=== PATIENT | female | born 1995 | race Caucasian/White ===

== ENCOUNTER → 2021-12-08 13:40 | Outpatient (BNVA) | payer MEDICAID, SELFPAY | PROVIDERS: Visit Provider Obstetrics & Gynecology | DX: Z01.419 Encounter for gynecological examination (general) (routine) without abnormal findings (principal) | CPT/HCPCS: 88175 ==

== ENCOUNTER 2022-08-27 10:39 | Outpatient (CLI) | payer MEDICAID, SELFPAY ==
--- NOTE | 2022-08-27 10:46 | XR_ITS ---
WS: [id number] EXAMINATION: XR thoracic spine 3V* [id number] REASON FOR EXAM: R07.81 - Pleurodynia COMPARISON: None available. ORDER DATE: 08/27/2022 11:11 AM FINDINGS: There is normal thoracic vertebral alignment is no evidence of compression deformities or disc change s. XR/XR thoracic spine 3V* [id number] IMPRESSION: Normal thoracic spine.
--- NOTE | 2022-08-27 10:46 | XR_ITS ---
WS: [id number] EXAMINATION: XR ribs LT 2V* [id number] REASON FOR EXAM: R07.81 - Pleurodynia COMPARISON: None available. ORDER DATE: 08/27/2022 11:11 AM FINDINGS: Rib outlines appear intact throughout the left ribs. No underlying pulmonary change XR/XR ribs LT 2V* [id number] IMPRESSION: No acute change
== END 2022-08-27 10:40 | disposition home or self-care (01) ==
LOC: RAD 10:46
PROVIDERS: PCP Registered Nurse; Visit Provider Registered Nurse
DX: R07.81 Pleurodynia (principal); N39.0 Urinary tract infection, site not specified; R10.9 Unspecified abdominal pain
CPT/HCPCS: 71100; 72072; 81000; 87086

== ENCOUNTER → 2024-05-25 10:31 | Outpatient (BNVA) | payer OTHER, SELFPAY | PROVIDERS: PCP Registered Nurse; Visit Provider Nurse Practitioner Family | DX: R39.9 Unspecified symptoms and signs involving the genitourinary system (principal); N39.0 Urinary tract infection, site not specified; A49.9 Bacterial infection, unspecified | CPT/HCPCS: 81000 ==

== ENCOUNTER → 2025-01-02 11:19 | Outpatient (BNVA) | payer SELFPAY | PROVIDERS: PCP Registered Nurse; Visit Provider Nurse Practitioner Women's Health | DX: Z12.4 Encounter for screening for malignant neoplasm of cervix (principal) | CPT/HCPCS: 87624 ==